=== PATIENT | female | born 1985 | race Caucasian/White ===

== ENCOUNTER → 2016-09-14 | Outpatient (CLI) | payer OTHER | LOC: COL.RAD 10:30 | DX: Z53.8 Procedure and treatment not carried out for other reasons (principal) ==

== ENCOUNTER → 2016-09-22 | Outpatient (CLI) | payer OTHER | LOC: COL.RAD 13:02 | DX: Z12.89 Encounter for screening for malignant neoplasm of other sites (principal) | CPT/HCPCS: A9585 ==